=== PATIENT | female | born 1960 | race Caucasian/White ===

== ENCOUNTER 2018-04-10 04:56 | Inpatient (IN) | payer OTHER ==
[2018-04-04 10:25] VITALS: BMI 22.2
[2018-04-10 06:48] LABS: MCH 32.6 pg (25.7-33.7); MCHC 34.9 g/dl (32.0-36.0); MEAN CELL VOLUME 93.4 fl (80-96); MEAN PLT VOLUME 8.2 fl (7.5-11.1); PLATELET COUNT 123 K/MM3 (134-434); RDW 14.1 % (11.6-15.6); WHITE BLOOD COUNT 2.7 K/mm3 (4.0-10.0)
[2018-04-10] MEDS ORDERED: GENTAMICIN SO4 80 MG/2 ML VIAL ONE (07:13)
[2018-04-10] MEDS ORDERED: LIDOCAINE 1%/EPI 1:100000 (20 ML MULTI DOSE VIAL) ONE (07:14)
[2018-04-10] MEDS ORDERED: VANCOMYCIN 1,000 MG VIAL (RESTRICTED TO ID ONLY) ONE ×3 (07:14→08:45)
[2018-04-10] MEDS ORDERED: THROMBIN (BOVINE) 20,000 UNIT VIAL TP ONE (07:14)
[2018-04-10] MEDS ORDERED: BUPIVACAINE HCL/PF 0.5% (5MG/ML) 10 ML VIAL ONE (07:15)
[2018-04-10] MEDS ORDERED: PROPOFOL 20 ML ONE (07:40)
[2018-04-10] MEDS ORDERED: ROCURONIUM BROMIDE 50 MG/5 ML VIAL ONE ×2 (07:40→09:04)
[2018-04-10] MEDS ORDERED: MIDAZOLAM HCL 2 MG/2 ML SINGLE DOSE VIAL ONE ×2 (07:40)
[2018-04-10] MEDS ORDERED: fentaNYL CITRATE 250 MCG/5 ML VIAL ONE (07:40)
--- NOTE | 2018-04-10 08:04 | HP ---
History & Physical Update - History History: No Change - Physical Physical: No Change - Assessment Assessment: No Change - Plan Plan: No Change (no changes since visit with pcp on 03/30/18)
[2018-04-10] MEDS ORDERED: LIDOCAINE 1%/EPI 1:100000 (20 ML MULTI DOSE VIAL) IJ ONE (08:35)
[2018-04-10] MEDS ORDERED: ceFAZolin SODIUM 1 GM VIAL ONE (08:45)
[2018-04-10] MEDS ORDERED: ceFAZolin SODIUM 1 GM VIAL IVPB ONE (08:49)
[2018-04-10] MEDS ORDERED: VANCOMYCIN 1,000 MG VIAL (RESTRICTED TO ID ONLY) IVPB ONE (08:49)
[2018-04-10] MEDS ORDERED: DEXAMETHASONE SOD PHOSPHATE 4 MG/1 ML VIAL ONE (09:08)
[2018-04-10] MEDS ORDERED: BUPIVACAINE HCL/PF 0.5% (5MG/ML) 10 ML VIAL IJ ONE (09:52)
[2018-04-10] MEDS ORDERED: THROMBIN (BOVINE) 5,000 UNIT VIAL TP ONE ×2 (09:52→10:01)
[2018-04-10] MEDS ORDERED: GELATIN, ABSORBABLE 100 EACH SPONGE TP ONE (09:52)
[2018-04-10] MEDS ORDERED: PHENYLEPHRINE HCL 10 MG/1 ML SINGLE DOSE VIAL ONE (10:34)
[2018-04-10] MEDS ORDERED: NEOSTIGMINE METHYLSULFATE 0.5 MG/ML - 10 ML MDV ONE (10:43)
[2018-04-10] MEDS ORDERED: GLYCOPYRROLATE 0.2 MG/1 ML VIAL ONE (10:44)
[2018-04-10] MEDS ORDERED: ONDANSETRON 4 MG/2 ML VIAL IVPUSH PRN (11:34)
[2018-04-10] MEDS ORDERED: HYDROmorphone *PCA* 10MG/50ML DISP.SYRIN PCA ONE (11:55)
[2018-04-10] MEDS: SODIUM CHLORIDE 1,000 ML IV SCH (12:00)
[2018-04-10] MEDS: HYDROmorphone *PCA* 10MG/50ML DISP.SYRIN PCA SCH ×2 (12:00→18:52)
--- NOTE | 2018-04-10 12:39 | OP ---
Operative Note - Note: Operative Date: 04/10/18 Pre-Operative Diagnosis: Lumbar disc herniation LE radiculopathy Operation: L1-L2 discectomy and fusion, interbody cage arthrodesis and pedicle screw fixation Post-Operative Diagnosis: Same as Pre-op Surgeon: Joselito Rousseau Drying Room Operator: Cielo Baker Anesthesiologist/ASSISTED LIVING COORDINATOR: Jessica Wayne Anesthesia: General Estimated Blood Loss (mls): 1,800 Drains & Tubes with Location: JOSE RAFAEL right lumbar Drains, Volume Out (mls): 150 (arnold) Fluid Volume Replaced (mls): 2,400 Operative Report Dictated: Yes
--- NOTE | 2018-04-10 12:40 | SURG ---
Surgery Outbound Sales Consultant Note Outbound Sales Consultant: Cielo Baker PA-C Date of Service: 04/10/18 Diagnosis: Lumbar disc herniation, LE radiculopathy Procedure: L1-L2 discectomy and fusion, interbody cage arthrodesis and pedicle screw fixation I was present for the entirety of the operative procedure. For further detail, please refer to operative report. Visit type - Case Type Case Type: Scheduled - Emergency Emergency Visit: No - New patient This patient is new to me today: Yes Date on this admission: 04/10/18
[2018-04-10 13:22] LABS: HEMATOCRIT 25.4 % (32.4-45.2); HEMOGLOBIN 8.3 GM/dL (10.7-15.3); MCHC 32.8 g/dl (32.0-36.0); MEAN CELL VOLUME 94.3 fl (80-96); MEAN PLT VOLUME 8.8 fl (7.5-11.1); PLATELET COUNT 105 K/MM3 (134-434); RBC 2.69 M/mm3 (3.60-5.2); RDW 14.1 % (11.6-15.6); WHITE BLOOD COUNT 5.6 K/mm3 (4.0-10.0)
[2018-04-10] MEDS ORDERED: CEFAZOLIN 1 GM in DEXTROSE 5%-WATER - 50 ML IVPB SCH (17:00)
[2018-04-10] MEDS: INSULIN SLIDING SCALE (NOVOLOG) 1 VIAL SQ SCH (18:56)
[2018-04-10] MEDS: LACTATED RINGERS SOLUTION 1,000 ML IV SCH (18:56)
[2018-04-10] MEDS: NICOTINE 21 MG/24 HOURS TOPICAL PATCH TD SCH (18:57)
[2018-04-11] MEDS ORDERED: PT OWN MED DRAWER 7, Y5N ONE ×3 (01:34→12:31)
[2018-04-11] MEDS: CEFAZOLIN 1 GM in DEXTROSE 5%-WATER - 50 ML IVPB SCH ×3 (01:46→17:07)
[2018-04-11] MEDS: HEPARIN NA (PORCINE) 5,000 UNITS/ML 1ML VIAL SQ SCH ×3 (06:04→21:51)
[2018-04-11] MEDS: INSULIN SLIDING SCALE (NOVOLOG) 1 VIAL SQ SCH ×3 (06:23→17:28)
[2018-04-11 08:11] LABS: HEMATOCRIT 28.8 % (32.4-45.2); HEMOGLOBIN 9.9 GM/dL (10.7-15.3); MCH 30.1 pg (25.7-33.7); MCHC 34.4 g/dl (32.0-36.0); MEAN CELL VOLUME 87.8 fl (80-96); MEAN PLT VOLUME 8.9 fl (7.5-11.1); PLATELET COUNT 78 K/MM3 (134-434); RBC 3.28 M/mm3 (3.60-5.2); RDW 21.6 % (11.6-15.6); WHITE BLOOD COUNT 6.8 K/mm3 (4.0-10.0)
[2018-04-11] MEDS ORDERED: oxyCODONE HCL 5 MG TABLET PO PRN (08:34)
[2018-04-11 08:54] LABS: ANION GAP 8 (8-16); BLOOD UREA NITROGEN 32 mg/dL (7-18); CALCIUM 7.6 mg/dL (8.5-10.1); CHLORIDE 107 mmol/L (98-107); CO2 24 mmol/L (21-32); GLUCOSE,RANDOM 97 mg/dL (74-106); SODIUM 139 mmol/L (136-145)
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
[2018-04-11 08:56] LABS: POTASSIUM 4.4 mmol/L (3.5-5.1)
[2018-04-11] MEDS: NICOTINE 21 MG/24 HOURS TOPICAL PATCH TD SCH (09:23)
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
[2018-04-11 09:51] LABS: ALBUMIN 2.5 g/dl (3.4-5.0); ALK PHOS 211 U/L (45-117); BILIRUBIN,DIRECT 0.4 mg/dL (0.0-0.2); BILIRUBIN,TOTAL 0.9 mg/dL (0.2-1.0); SGPT/ALT 161 U/L (12-78); TOT PROT 6.8 g/dl (6.4-8.2)
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
[2018-04-11 10:50] LABS: SGOT/AST 174 U/L (15-37)
[2018-04-11] MEDS: SODIUM CHLORIDE 1,000 ML IV SCH (11:43)
[2018-04-11] MEDS: LACTATED RINGERS SOLUTION 1,000 ML IV SCH (11:43)
--- NOTE | 2018-04-11 11:49 | EKG ---
Test Reason : Blood Pressure : / mmHG Vent. Rate : 079 BPM Atrial Rate : 079 BPM P-R Int : 132 ms QRS Dur : 080 ms QT Int : 352 ms P-R-T Axes : 046 006 024 degrees QTc Int : 403 ms NORMAL SINUS RHYTHM NORMAL ECG NO PREVIOUS ECGS AVAILABLE Confirmed by MD ITALIA, SHANE ([id number]) on 04/11/2018 11:49:16 AM Referred By: GERRI BROWN DR Confirmed By:SHANE ECHAVARRIA MD
[2018-04-11] MEDS ORDERED: ALBUTEROL SO4 2.5/IPRATROPIUM 0.5 INH SOL 3 ML VIAL.NEB. NEB SCH (12:00)
[2018-04-11] MEDS: TIOTROPIUM BROMIDE 18 MCG CAPSULES IH SCH (12:25)
[2018-04-11] MEDS: oxyCODONE HCL 5 MG TABLET PO PRN ×3 (14:31→23:55)
[2018-04-11] MEDS: ALBUTEROL SO4 0.083% IH SOL 2.5 MG/3 ML VIAL.NEB. NEB PRN (14:45)
--- NOTE | 2018-04-11 17:00 | PN ---
Progress Note, Physician Chief Complaint: S/p lumbar decompression and fusion under general anesthesia History of Present Illness: Post op day one, family consumer science fcs teacher for pain control. - Current Medication List Current Medications: Active Medications Albuterol Sulfate (Ventolin 0.083% Nebulizer Soln -) 1 amp NEB Q4H PRN PRN Reason: SHORT OF BREATH/WHEEZING Last Admin: 04/11/18 14:45 Dose: 1 amp Arformoterol Tartrate (Brovana (Restricted To Pulmonology/Resp) -) 1 amp NEB RBID [facility] Diphenhydramine HCl (Benadryl Injection -) 25 mg IVPB Q6H PRN PRN Reason: FOR ITCHING Last Admin: 04/11/18 07:58 Dose: 25 mg Fentanyl (Sublimaze Injection -) 50 mcg IVPUSH [id number] PRN PRN Reason: PAIN-PACU ORDER X 4 DOSES ONLY Last Admin: 04/10/18 11:40 Dose: 50 mcg Heparin Sodium (Porcine) (Heparin -) 5,000 unit SQ TID [facility] Last Admin: 04/11/18 14:32 Dose: 5,000 unit Lactated Ringer's (Lactated Ringers Solution) 1,000 mls @ 125 mls/hr IV ASDIR [facility] Last Admin: 04/11/18 11:43 Dose: Not Given Sodium Chloride (Normal Saline -) 1,000 mls @ 100 mls/hr IV ASDIR [facility] Last Admin: 04/11/18 11:43 Dose: Not Given Cefazolin Sodium 1 gm/ (Dextrose) 50 mls @ 100 mls/hr IVPB Q8H [facility] Last Admin: 04/11/18 09:22 Dose: 100 mls/hr Insulin Aspart (Novolog Vial Sliding Scale -) 1 vial SQ TIDAC [facility] PRN Reason: Protocol Last Admin: 04/11/18 12:00 Dose: 2 units Nicotine (Nicoderm Patch -) 21 mg TD DAILY [facility] [place] Last Admin: 04/11/18 09:23 Dose: 21 mg Oxycodone HCl (Roxicodone -) 10 mg PO Q4H PRN PRN Reason: PAIN LEVEL 1-5 Last Admin: 04/11/18 14:31 Dose: 10 mg Tiotropium [place] (Spiriva -) 1 puff IH DAILY [facility] [place] Last Admin: 04/11/18 12:25 Dose: 1 puff - Objective Vital Signs: Vital Signs Temperature 98.9 F 04/11/18 14:50 Pulse Rate 87 04/11/18 14:50 Respiratory Rate 20 04/11/18 14:50 Blood Pressure 91/59 04/11/18 14:50 O2 Sat by Pulse Oximetry (%) 99 04/10/18 20:54 Constitutional: Yes: Well Nourished Cardiovascular: Yes: WNL Respiratory: Yes: On Nasal O2 Gastrointestinal: Yes: WNL Labs: CBC, BMP 04/11/18 07:25 04/11/18 07:07 Assessment/Plan Post op day one, patient doing well, pain controlled, family consumer science fcs teacher stopped on oral analgesics, no nausea or vomiting, complaining of shortness of breath on ambulation, advised to use incentive spirometer. dept of anesthesia will sign off care at this time
[2018-04-11] MEDS ORDERED: DEXTROSE 5%-WATER - 50 ML IVPB ONE (17:06)
[2018-04-11] MEDS ORDERED: ceFAZolin SODIUM 1 GM VIAL ONE (17:06)
[2018-04-11] MEDS: ARFORMOTEROL TARTRATE 15 MCG/2 ML VIAL NEB SCH (20:25)
[2018-04-12] MEDS ORDERED: ceFAZolin SODIUM 1 GM VIAL ONE ×3 (01:01→17:10)
[2018-04-12] MEDS ORDERED: DEXTROSE 5%-WATER - 50 ML IVPB ONE ×3 (01:01→17:11)
[2018-04-12] MEDS: CEFAZOLIN 1 GM in DEXTROSE 5%-WATER - 50 ML IVPB SCH ×3 (01:08→17:27)
[2018-04-12] MEDS: oxyCODONE HCL 5 MG TABLET PO PRN ×5 (03:55→22:53)
[2018-04-12] MEDS: HEPARIN NA (PORCINE) 5,000 UNITS/ML 1ML VIAL SQ SCH ×3 (05:52→22:54)
[2018-04-12] MEDS: INSULIN SLIDING SCALE (NOVOLOG) 1 VIAL SQ SCH ×3 (06:04→17:22)
[2018-04-12] MEDS: ARFORMOTEROL TARTRATE 15 MCG/2 ML VIAL NEB SCH ×2 (07:05→20:30)
[2018-04-12 08:00] LABS: BASO % 0.6 % (0-2.0); HEMATOCRIT 28.3 % (32.4-45.2); HEMOGLOBIN 9.7 GM/dL (10.7-15.3); LYMPH % 28.8 % (8-40); MCH 30.1 pg (25.7-33.7); MCHC 34.3 g/dl (32.0-36.0); MEAN CELL VOLUME 87.7 fl (80-96); MEAN PLT VOLUME 8.4 fl (7.5-11.1); MONO % 12.8 % (3.8-10.2); NEUT % 53.8 % (42.8-82.8); PLATELET COUNT 78 K/MM3 (134-434); RBC 3.23 M/mm3 (3.60-5.2); RDW 21.4 % (11.6-15.6); WHITE BLOOD COUNT 2.9 K/mm3 (4.0-10.0)
[2018-04-12 08:26] LABS: ALBUMIN 2.3 g/dl (3.4-5.0); ANION GAP 5 (8-16); BLOOD UREA NITROGEN 22 mg/dL (7-18); CALCIUM 7.7 mg/dL (8.5-10.1); CHLORIDE 106 mmol/L (98-107); CO2 27 mmol/L (21-32); GLUCOSE,RANDOM 111 mg/dL (74-106); POTASSIUM 4.2 mmol/L (3.5-5.1); SODIUM 138 mmol/L (136-145)
[2018-04-12 08:30] LABS: ALK PHOS 216 U/L (45-117); CHOLESTEROL 98 mg/dL (50-200); CREATININE 0.8 mg/dL (0.55-1.02); HDL CHOLESTEROL 40 mg/dL (40-60); SGOT/AST 204 U/L (15-37); SGPT/ALT 158 U/L (12-78); TOT PROT 6.7 g/dl (6.4-8.2); TRIGLYCERIDES 74 mg/dL (35-160)
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
[2018-04-12] MEDS ORDERED: PT OWN MED DRAWER 7, Y5N ONE (09:42)
[2018-04-12] MEDS: TIOTROPIUM BROMIDE 18 MCG CAPSULES IH SCH (09:44)
[2018-04-12] MEDS: NICOTINE 21 MG/24 HOURS TOPICAL PATCH TD SCH (09:48)
[2018-04-12] MEDS: LACTATED RINGERS SOLUTION 1,000 ML IV SCH (09:50)
[2018-04-12] MEDS ORDERED: INSULIN (NOVOLOG) ASPART 100 UNITS/ML 10ML VIAL ONE ×2 (11:36→17:19)
--- NOTE | 2018-04-12 11:39 | PROC ---
Procedure Note Procedure: J/P drain pulled form right paravetebral lumbar spine with tip fully intact, the drain site was clean and dry and a pressure dressing was applied. The patient tolerated the procedure well. Her incision at the midline is c/d/i with jeyson insitu no evidence tracking erythema, collection or d/c. surrounding tissue intact. Clean dressing applied
[2018-04-12] MEDS: FOLIC ACID 1 MG TABLET (FP) PO SCH (12:05)
[2018-04-12] MEDS: FERROUS SO4 325 MG TABLET (FP) PO SCH (12:05)
[2018-04-12] MEDS: ALBUTEROL SO4 0.083% IH SOL 2.5 MG/3 ML VIAL.NEB. NEB PRN (13:07)
--- NOTE | 2018-04-12 13:19 | PN ---
Progress Note, Physician History of Present Illness: PULMONARY ALERT,C/O BACK PAIN,-SOB AT REST - Current Medication List Current Medications: Active Medications Albuterol Sulfate (Ventolin 0.083% Nebulizer Soln -) 1 amp NEB Q4H PRN PRN Reason: SHORT OF BREATH/WHEEZING Last Admin: 04/12/18 13:07 Dose: 1 amp Arformoterol Tartrate (Brovana (Restricted To Pulmonology/Resp) -) 1 amp NEB RBID [facility] Last Admin: 04/12/18 07:05 Dose: 1 amp Diphenhydramine HCl (Benadryl Injection -) 25 mg IVPB Q6H PRN PRN Reason: FOR ITCHING Last Admin: 04/12/18 11:49 Dose: 25 mg Fentanyl (Sublimaze Injection -) 50 mcg IVPUSH [id number] PRN PRN Reason: PAIN-PACU ORDER X 4 DOSES ONLY Last Admin: 04/10/18 11:40 Dose: 50 mcg Ferrous Sulfate (Feosol -) 325 mg PO DAILY [facility] Last Admin: 04/12/18 12:05 Dose: 325 mg Folic Acid (Folic Acid -) 1 mg PO DAILY [facility] Last Admin: 04/12/18 12:05 Dose: 1 mg Heparin Sodium (Porcine) (Heparin -) 5,000 unit SQ TID [facility] Last Admin: 04/12/18 05:52 Dose: 5,000 unit Cefazolin Sodium 1 gm/ (Dextrose) 50 mls @ 100 mls/hr IVPB Q8H [facility] Last Admin: 04/12/18 09:48 Dose: 100 mls/hr Insulin Aspart (Novolog Vial Sliding Scale -) 1 vial SQ TIDAC [facility] PRN Reason: Protocol Last Admin: 04/12/18 11:38 Dose: 4 units Nicotine (Nicoderm Patch -) 21 mg TD DAILY [facility] Last Admin: 04/12/18 09:48 Dose: 21 mg Oxycodone HCl (Roxicodone -) 10 mg PO Q4H PRN PRN Reason: PAIN LEVEL 1-5 Last Admin: 04/12/18 09:59 Dose: 10 mg Tiotropium [place] (Spiriva -) 1 puff IH DAILY [facility] Last Admin: 04/12/18 09:44 Dose: 1 puff - Objective Vital Signs: Vital Signs Temperature 98.8 F 04/11/18 22:00 Pulse Rate 88 04/11/18 22:00 Respiratory Rate 18 04/11/18 22:00 Blood Pressure 134/77 04/11/18 22:00 O2 Sat by Pulse Oximetry (%) 98 04/11/18 21:00 Constitutional: Yes: Calm, Thin Eyes: Yes: WNL HENT: Yes: WNL Neck: Yes: WNL Cardiovascular: Yes: Regular Rate and Rhythm, S1, S2 Respiratory: Yes: Diminished Gastrointestinal: Yes: Normal Bowel Sounds, Soft Extremities: Yes: WNL Edema: No Labs: CBC, BMP 04/12/18 06:15 04/12/18 06:15 Assessment/Plan Problem List - Problems (1) Atelectasis of both lungs Code(s): J98.11 - ATELECTASIS (2) Breast cancer Code(s): C50.919 - MALIGNANT NEOPLASM OF UNSP SITE OF UNSPECIFIED FEMALE BREAST (3) COPD (chronic obstructive pulmonary disease) Code(s): J44.9 - CHRONIC OBSTRUCTIVE PULMONARY DISEASE, UNSPECIFIED (4) History of laminectomy Code(s): Z98.890 - OTHER SPECIFIED POSTPROCEDURAL STATES (5) SOB (shortness of breath) Code(s): R06.02 - SHORTNESS OF BREATH Assessment/Plan Incentive Spirometry O2 as needed No Smoking Outpatient PFTs Marianoiva Kenziea BID Albuterol PRN No indication for systemic steroids at this time Pain control per primary team DR CHACON
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
[2018-04-13] MEDS ORDERED: DEXTROSE 5%-WATER - 50 ML IVPB ONE ×3 (01:36→16:52)
[2018-04-13] MEDS ORDERED: ceFAZolin SODIUM 1 GM VIAL ONE ×3 (01:36→16:51)
[2018-04-13] MEDS: CEFAZOLIN 1 GM in DEXTROSE 5%-WATER - 50 ML IVPB SCH ×3 (01:51→16:57)
[2018-04-13] MEDS: oxyCODONE HCL 5 MG TABLET PO PRN ×3 (06:16→17:50)
[2018-04-13] MEDS: INSULIN SLIDING SCALE (NOVOLOG) 1 VIAL SQ SCH ×3 (06:16→16:57)
[2018-04-13] MEDS: HEPARIN NA (PORCINE) 5,000 UNITS/ML 1ML VIAL SQ SCH ×3 (06:17→23:21)
[2018-04-13] MEDS: ARFORMOTEROL TARTRATE 15 MCG/2 ML VIAL NEB SCH ×2 (07:26→19:25)
[2018-04-13 07:45] LABS: HEMATOCRIT 30.6 % (32.4-45.2); HEMOGLOBIN 10.6 GM/dL (10.7-15.3); MCH 30.3 pg (25.7-33.7); MCHC 34.6 g/dl (32.0-36.0); MEAN CELL VOLUME 87.5 fl (80-96); MEAN PLT VOLUME 8.7 fl (7.5-11.1); PLATELET COUNT 96 K/MM3 (134-434); RBC 3.49 M/mm3 (3.60-5.2); RDW 19.7 % (11.6-15.6); WHITE BLOOD COUNT 4.5 K/mm3 (4.0-10.0)
[2018-04-13 08:00] LABS: CHLORIDE 100 mmol/L (98-107); POTASSIUM 3.9 mmol/L (3.5-5.1); SODIUM 134 mmol/L (136-145)
[2018-04-13 08:14] LABS: ANION GAP 7 (8-16); BLOOD UREA NITROGEN 14 mg/dL (7-18); CALCIUM 7.9 mg/dL (8.5-10.1); CO2 27 mmol/L (21-32); CREATININE 0.7 mg/dL (0.55-1.02); GLUCOSE,RANDOM 141 mg/dL (74-106)
[2018-04-13] MEDS ORDERED: PT OWN MED DRAWER 7, Y5N ONE (09:00)
[2018-04-13] MEDS: FERROUS SO4 325 MG TABLET (FP) PO SCH (09:08)
[2018-04-13] MEDS: TIOTROPIUM BROMIDE 18 MCG CAPSULES IH SCH (09:08)
[2018-04-13] MEDS: NICOTINE 21 MG/24 HOURS TOPICAL PATCH TD SCH (09:08)
[2018-04-13] MEDS: FOLIC ACID 1 MG TABLET (FP) PO SCH (09:08)
--- NOTE | 2018-04-13 10:30 | PN ---
Progress Note (short form) - Note Progress Note: Breathing feels better. Less SOB. Feels that the BD TX and nicotene patch are helpful. Intake & Output 04/10/18 04/11/18 04/12/18 04/13/18 23:59 23:59 23:59 23:59 Intake Total 2650 1752 350 100 Output Total 2915 1530 3070 500 Balance -265 222 -2720 -400 Weight 110 lb Last Vital Signs Temp Pulse Resp BP Pulse Ox 100.4 F H 93 H 20 154/94 98 04/13/18 06:30 04/13/18 06:30 04/13/18 06:30 04/13/18 06:30 04/12/18 21:00 Active Medications Albuterol Sulfate (Ventolin 0.083% Nebulizer Soln -) 1 amp NEB Q4H PRN PRN Reason: SHORT OF BREATH/WHEEZING Last Admin: 04/12/18 13:07 Dose: 1 amp Arformoterol Tartrate (Brovana (Restricted To Pulmonology/Resp) -) 1 amp NEB RBID [facility] Last Admin: 04/13/18 07:26 Dose: 1 amp Diphenhydramine HCl (Benadryl Injection -) 25 mg IVPB Q6H PRN PRN Reason: FOR ITCHING Last Admin: 04/13/18 01:50 Dose: 25 mg Fentanyl (Sublimaze Injection -) 50 mcg IVPUSH [id number] PRN PRN Reason: PAIN-PACU ORDER X 4 DOSES ONLY Last Admin: 04/10/18 11:40 Dose: 50 mcg Ferrous Sulfate (Feosol -) 325 mg PO DAILY [facility] Last Admin: 04/13/18 09:08 Dose: 325 mg Folic Acid (Folic Acid -) 1 mg PO DAILY [facility] Last Admin: 04/13/18 09:08 Dose: 1 mg Heparin Sodium (Porcine) (Heparin -) 5,000 unit SQ TID [facility] Last Admin: 04/13/18 06:17 Dose: 5,000 unit Cefazolin Sodium 1 gm/ (Dextrose) 50 mls @ 100 mls/hr IVPB Q8H [facility] Last Admin: 04/13/18 09:06 Dose: 100 mls/hr Insulin Aspart (Novolog Vial Sliding Scale -) 1 vial SQ TIDAC [facility] PRN Reason: Protocol Last Admin: 04/13/18 06:16 Dose: 2 units Nicotine (Nicoderm Patch -) 21 mg TD DAILY [facility] Last Admin: 04/13/18 09:08 Dose: 21 mg Oxycodone HCl (Roxicodone -) 10 mg PO Q4H PRN PRN Reason: PAIN LEVEL 1-5 Last Admin: 04/13/18 06:16 Dose: 10 mg Tiotropium [place] (Spiriva -) 1 puff IH DAILY [facility] Last Admin: 04/13/18 09:08 Dose: 1 puff Constitutional: Yes: Anxious, Thin Eyes: Yes: Conjunctiva Clear, EOM Intact HENT: Yes: Atraumatic, Normocephalic Neck: Yes: Supple, Trachea Midline Cardiovascular: Yes: Regular Rate and Rhythm Respiratory: Yes: Cough, Diminished, On Nasal O2, Rhonchi. No: Accessory Muscle Use, Rales, Stridor, Tachypnea, Wheezes ...Inspection: Yes: WNL ...Clubbing: No Gastrointestinal: Yes: Normal Bowel Sounds, Soft Renal/: Yes: WNL Musculoskeletal: Yes: Back Pain, Joint Stiffness, Joint Swelling, Muscle Pain Extremities: Yes: WNL Edema: No Peripheral Pulses WNL: Yes Integumentary: Yes: Incision. No: Rash Neurological: Yes: WNL, Alert, Oriented ...Motor Strength: WNL Psychiatric: Yes: WNL, Alert, Oriented Labs: Laboratory Results - last 24 hr 04/12/18 04/12/18 04/13/18 11:31 17:15 06:13 WBC RBC Hgb Hct MCV MCH MCHC RDW Plt Count MPV Sodium Potassium Chloride Carbon Dioxide Anion Gap BUN Creatinine POC Glucometer 219 160 151 Random Glucose Calcium 04/13/18 04/13/18 06:15 06:15 WBC 4.5 D RBC 3.49 L Hgb 10.6 L Hct 30.6 L MCV 87.5 MCH 30.3 MCHC 34.6 RDW 19.7 H Plt Count 96 L D MPV 8.7 Sodium 134 L Potassium 3.9 Chloride 100 Carbon Dioxide 27 Anion Gap 7 L BUN 14 Creatinine 0.7 POC Glucometer Random Glucose 141 H Calcium 7.9 L Problem List - Problems (1) Atelectasis of both lungs Code(s): J98.11 - ATELECTASIS (2) Breast cancer Code(s): C50.919 - MALIGNANT NEOPLASM OF UNSP SITE OF UNSPECIFIED FEMALE BREAST (3) COPD (chronic obstructive pulmonary disease) Code(s): J44.9 - CHRONIC OBSTRUCTIVE PULMONARY DISEASE, UNSPECIFIED (4) History of laminectomy Code(s): Z98.890 - OTHER SPECIFIED POSTPROCEDURAL STATES (5) SOB (shortness of breath) Code(s): R06.02 - SHORTNESS OF BREATH Assessment/Plan Encourage Incentive Spirometry O2 as needed No Smoking Outpatient PFTs Spiriva Brovana BID Albuterol PRN No indication for systemic steroids at this time Pain control per primary team Nicotene patch Patient reports that she is motivated to quit smoking Dr Sanchez Problem List - Problems (1) Atelectasis of both lungs Code(s): J98.11 - ATELECTASIS (2) Breast cancer Code(s): C50.919 - MALIGNANT NEOPLASM OF UNSP SITE OF UNSPECIFIED FEMALE BREAST (3) COPD (chronic obstructive pulmonary disease) Code(s): J44.9 - CHRONIC OBSTRUCTIVE PULMONARY DISEASE, UNSPECIFIED (4) History of laminectomy Code(s): Z98.890 - OTHER SPECIFIED POSTPROCEDURAL STATES (5) SOB (shortness of breath) Code(s): R06.02 - SHORTNESS OF BREATH
--- NOTE | 2018-04-13 11:12 | PN ---
Progress Note, Physician Chief Complaint: patient seen and examined complaining of constipation JOSE RAFAEL drain removed ambulating with walker temp noted will order UA and cultures - Current Medication List Current Medications: Active Medications Albuterol Sulfate (Ventolin 0.083% Nebulizer Soln -) 1 amp NEB Q4H PRN PRN Reason: SHORT OF BREATH/WHEEZING Last Admin: 04/12/18 13:07 Dose: 1 amp Arformoterol Tartrate (Brovana (Restricted To Pulmonology/Resp) -) 1 amp NEB RBID [facility] Last Admin: 04/13/18 07:26 Dose: 1 amp Diphenhydramine HCl (Benadryl Injection -) 25 mg IVPB Q6H PRN PRN Reason: FOR ITCHING Last Admin: 04/13/18 01:50 Dose: 25 mg Fentanyl (Sublimaze Injection -) 50 mcg IVPUSH [id number] PRN PRN Reason: PAIN-PACU ORDER X 4 DOSES ONLY Last Admin: 04/10/18 11:40 Dose: 50 mcg Ferrous Sulfate (Feosol -) 325 mg PO DAILY [facility] Last Admin: 04/13/18 09:08 Dose: 325 mg Folic Acid (Folic Acid -) 1 mg PO DAILY [facility] Last Admin: 04/13/18 09:08 Dose: 1 mg Heparin Sodium (Porcine) (Heparin -) 5,000 unit SQ TID [facility] Last Admin: 04/13/18 06:17 Dose: 5,000 unit Cefazolin Sodium 1 gm/ (Dextrose) 50 mls @ 100 mls/hr IVPB Q8H [facility] Last Admin: 04/13/18 09:06 Dose: 100 mls/hr Insulin Aspart (Novolog Vial Sliding Scale -) 1 vial SQ TIDAC [facility] PRN Reason: Protocol Last Admin: 04/13/18 06:16 Dose: 2 units Nicotine (Nicoderm Patch -) 21 mg TD DAILY [facility] Last Admin: 04/13/18 09:08 Dose: 21 mg Oxycodone HCl (Roxicodone -) 10 mg PO Q4H PRN PRN Reason: PAIN LEVEL 1-5 Last Admin: 04/13/18 06:16 Dose: 10 mg Tiotropium [place] (Spiriva -) 1 puff IH DAILY [facility] Last Admin: 04/13/18 09:08 Dose: 1 puff - Objective Vital Signs: Vital Signs Temperature 100.8 F H 0517/18 08:05 Pulse Rate 86 04/13/18 08:05 Respiratory Rate 20 04/13/18 08:05 Blood Pressure 159/92 04/13/18 08:05 O2 Sat by Pulse Oximetry (%) 98 04/12/18 21:00 Constitutional: Yes: Calm Neck: Yes: Trachea Midline Cardiovascular: Yes: Regular Rate and Rhythm, S1, S2 Respiratory: Yes: CTA Bilaterally Gastrointestinal: Yes: Normal Bowel Sounds, Soft Musculoskeletal: Yes: Other (back brace) Neurological: Yes: Alert, Oriented Labs: CBC, BMP 04/13/18 06:15 04/13/18 06:15 Problem List - Problems (1) History of laminectomy Assessment/Plan: L1-L2 discectomy and fusion, interbody cage arthrodesis and pedicle screw fixation JOSE RAFAEL drain removed rolling walker at the time of discharge pain control dvt ppx Code(s): Z98.890 - OTHER SPECIFIED POSTPROCEDURAL STATES (2) Fever Assessment/Plan: UA and cultures orderd on ancef incentive spirometry cxr Code(s): R50.9 - FEVER, UNSPECIFIED (3) Liver cancer Assessment/Plan: elevated LFT to follow up with PMD Code(s): C22.9 - MALIG NEOPLASM OF LIVER, NOT SPECIFIED PRIMARY OR SEC (4) COPD (chronic obstructive pulmonary disease) Assessment/Plan: smoking cessation nictone patch Code(s): J44.9 - CHRONIC OBSTRUCTIVE PULMONARY DISEASE, UNSPECIFIED
[2018-04-13] MEDS ORDERED: POLYETHYLENE GLYCOL 3350 119 GM BTL PO SCH (11:15)
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
[2018-04-13 12:42] LABS: URINE APPEARANCE SLCLOUDY; URINE BILIRUBIN NEGATIVE (<2.0 mg/dL); URINE COLOR YELLOW; URINE GLUCOSE (UA) NEGATIVE (NEGATIVE); URINE KETONE NEGATIVE (NEGATIVE); URINE LEUK ESTERASE NEGATIVE (NEGATIVE); URINE NITRITE NEGATIVE (NEGATIVE); URINE PROTEIN NEGATIVE (NEGATIVE)
[2018-04-14] MEDS ORDERED: ceFAZolin SODIUM 1 GM VIAL ONE ×3 (00:28→16:50)
[2018-04-14] MEDS ORDERED: DEXTROSE 5%-WATER - 50 ML IVPB ONE ×3 (00:30→16:51)
[2018-04-14] MEDS: CEFAZOLIN 1 GM in DEXTROSE 5%-WATER - 50 ML IVPB SCH ×3 (01:05→16:51)
[2018-04-14] MEDS: oxyCODONE HCL 5 MG TABLET PO PRN ×4 (01:08→21:55)
[2018-04-14] MEDS: HEPARIN NA (PORCINE) 5,000 UNITS/ML 1ML VIAL SQ SCH ×3 (06:34→21:56)
--- NOTE | 2018-04-14 09:05 | PN ---
Progress Note (short form) - Note Progress Note: PULMONARY VSS/AFEBRILE HAS "ELECTRIC SHOCKS ON LEFT LEG WHEN DOING PT" NO CP/SOB/COUGH ANICTERIC/EDENTULOUS CLEAR B/L BREATH SOUNDS S1S2 RSR BS+ NO EDEMA LABS/MEDS/NOTES/IMAGES REVIEWED (1) Atelectasis of both lungs Code(s): J98.11 - ATELECTASIS (2) Breast cancer Code(s): C50.919 - MALIGNANT NEOPLASM OF UNSP SITE OF UNSPECIFIED FEMALE BREAST (3) COPD (chronic obstructive pulmonary disease) Code(s): J44.9 - CHRONIC OBSTRUCTIVE PULMONARY DISEASE, UNSPECIFIED (4) History of laminectomy Code(s): Z98.890 - OTHER SPECIFIED POSTPROCEDURAL STATES (5) SOB (shortness of breath) Code(s): R06.02 - SHORTNESS OF BREATH Assessment/Plan Encourage Incentive Spirometry O2 as needed No Smoking Outpatient PFTs Spiriva Brovana BID Albuterol PRN No indication for systemic steroids at this time Pain control per primary team Raulitotene patch Patient reports that she is motivated to quit smoking Jose Enrique SIMENTAL MD
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
[2018-04-14] MEDS: FERROUS SO4 325 MG TABLET (FP) PO SCH (09:18)
[2018-04-14] MEDS: NICOTINE 21 MG/24 HOURS TOPICAL PATCH TD SCH (09:18)
[2018-04-14] MEDS: TIOTROPIUM BROMIDE 18 MCG CAPSULES IH SCH (09:18)
[2018-04-14] MEDS: FOLIC ACID 1 MG TABLET (FP) PO SCH (09:19)
[2018-04-14] MEDS ORDERED: PT OWN MED DRAWER 7, Y5N ONE (09:25)
[2018-04-14] MEDS: POLYETHYLENE GLYCOL 3350 119 GM BTL PO SCH ×2 (09:50→21:56)
[2018-04-14] MEDS: ARFORMOTEROL TARTRATE 15 MCG/2 ML VIAL NEB SCH ×2 (10:58→20:54)
[2018-04-14] MEDS: INSULIN SLIDING SCALE (NOVOLOG) 1 VIAL SQ SCH ×2 (11:50→16:47)
[2018-04-14] MEDS ORDERED: INSULIN (NOVOLOG) ASPART 100 UNITS/ML 10ML VIAL ONE (11:52)
[2018-04-15] MEDS ORDERED: ceFAZolin SODIUM 1 GM VIAL ONE ×3 (00:56→17:23)
[2018-04-15] MEDS ORDERED: DEXTROSE 5%-WATER - 50 ML IVPB ONE ×3 (00:56→17:24)
[2018-04-15] MEDS: CEFAZOLIN 1 GM in DEXTROSE 5%-WATER - 50 ML IVPB SCH ×3 (01:06→17:24)
[2018-04-15] MEDS: oxyCODONE HCL 5 MG TABLET PO PRN ×3 (02:33→18:04)
[2018-04-15] MEDS: INSULIN SLIDING SCALE (NOVOLOG) 1 VIAL SQ SCH ×4 (06:10→17:21)
[2018-04-15] MEDS: HEPARIN NA (PORCINE) 5,000 UNITS/ML 1ML VIAL SQ SCH ×3 (06:38→21:00)
[2018-04-15] MEDS: ARFORMOTEROL TARTRATE 15 MCG/2 ML VIAL NEB SCH ×2 (07:42→20:15)
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
[2018-04-15] MEDS ORDERED: PT OWN MED DRAWER 7, Y5N ONE (09:36)
[2018-04-15] MEDS: TIOTROPIUM BROMIDE 18 MCG CAPSULES IH SCH (09:37)
[2018-04-15] MEDS: FERROUS SO4 325 MG TABLET (FP) PO SCH (09:37)
[2018-04-15] MEDS: FOLIC ACID 1 MG TABLET (FP) PO SCH (09:38)
[2018-04-15] MEDS: NICOTINE 21 MG/24 HOURS TOPICAL PATCH TD SCH (09:38)
[2018-04-15] MEDS: POLYETHYLENE GLYCOL 3350 119 GM BTL PO SCH ×2 (09:39→21:00)
--- NOTE | 2018-04-15 10:33 | PN ---
Progress Note (short form) - Note Progress Note: PULMONARY VSS/LOW GRADE TEMPS HAS "ELECTRIC SHOCKS ON LEFT LEG WHEN DOING PT" NO /SOB/COUGH ANICTERIC/EDENTULOUS DISTANT B/L BREATH SOUNDS S1S2 RSR BS+ NO EDEMA LABS/MEDS/NOTES/IMAGES REVIEWED (1) Atelectasis of both lungs Code(s): J98.11 - ATELECTASIS (2) Breast cancer Code(s): C50.919 - MALIGNANT NEOPLASM OF UNSP SITE OF UNSPECIFIED FEMALE BREAST (3) COPD (chronic obstructive pulmonary disease) Code(s): J44.9 - CHRONIC OBSTRUCTIVE PULMONARY DISEASE, UNSPECIFIED (4) History of laminectomy Code(s): Z98.890 - OTHER SPECIFIED POSTPROCEDURAL STATES (5) SOB (shortness of breath) Code(s): R06.02 - SHORTNESS OF BREATH Assessment/Plan Encourage Incentive Spirometry O2 as needed No Smoking Outpatient PFTs Spiriva Brovana BID Albuterol PRN No indication for systemic steroids at this time Pain control per primary team Raulitotenrinku patch Patient reports that she is motivated to quit smoking Jose Enrique SIMENTAL MD
[2018-04-16] MEDS ORDERED: DEXTROSE 5%-WATER - 50 ML IVPB ONE ×3 (00:49→17:41)
[2018-04-16] MEDS ORDERED: ceFAZolin SODIUM 1 GM VIAL ONE ×3 (00:49→17:40)
[2018-04-16] MEDS: oxyCODONE HCL 5 MG TABLET PO PRN ×4 (00:52→22:07)
[2018-04-16] MEDS: CEFAZOLIN 1 GM in DEXTROSE 5%-WATER - 50 ML IVPB SCH ×3 (00:53→17:43)
[2018-04-16] MEDS: HEPARIN NA (PORCINE) 5,000 UNITS/ML 1ML VIAL SQ SCH ×3 (05:42→21:39)
[2018-04-16] MEDS: INSULIN SLIDING SCALE (NOVOLOG) 1 VIAL SQ SCH ×3 (06:07→19:30)
[2018-04-16] MEDS: ARFORMOTEROL TARTRATE 15 MCG/2 ML VIAL NEB SCH ×2 (07:36→20:52)
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
[2018-04-16] MEDS: NICOTINE 21 MG/24 HOURS TOPICAL PATCH TD SCH (10:35)
[2018-04-16] MEDS: FOLIC ACID 1 MG TABLET (FP) PO SCH (10:35)
[2018-04-16] MEDS: FERROUS SO4 325 MG TABLET (FP) PO SCH (10:35)
[2018-04-16] MEDS: SENNOSIDES/DOCUSATE COMBO (SENNA PLUS) TABLET (UD) PO SCH ×2 (10:35→21:39)
[2018-04-16] MEDS: TIOTROPIUM BROMIDE 18 MCG CAPSULES IH SCH (10:36)
[2018-04-16] MEDS ORDERED: PT OWN MED DRAWER 7, Y5N ONE ×2 (10:48→10:52)
[2018-04-16] MEDS: POLYETHYLENE GLYCOL 3350 119 GM BTL PO SCH ×2 (12:27→21:41)
[2018-04-17] MEDS ORDERED: ceFAZolin SODIUM 1 GM VIAL ONE ×2 (00:20→09:52)
[2018-04-17] MEDS ORDERED: DEXTROSE 5%-WATER - 50 ML IVPB ONE ×2 (00:20→09:53)
[2018-04-17] MEDS: CEFAZOLIN 1 GM in DEXTROSE 5%-WATER - 50 ML IVPB SCH ×2 (00:52→12:22)
[2018-04-17] MEDS: oxyCODONE HCL 5 MG TABLET PO PRN ×2 (04:46→05:51)
[2018-04-17] MEDS: HEPARIN NA (PORCINE) 5,000 UNITS/ML 1ML VIAL SQ SCH ×2 (05:46→14:37)
[2018-04-17] MEDS: INSULIN SLIDING SCALE (NOVOLOG) 1 VIAL SQ SCH ×2 (06:01→12:27)
--- NOTE | 2018-04-17 09:50 | PN ---
Progress Note (short form) - Note Progress Note: PULMONARY Denies shortness of breath or chest pain. +cough with santiago sputum. No fevers or chills. Last Vital Signs Temp Pulse Resp BP Pulse Ox 97.5 F L 54 L 20 94/46 94 L 04/17/18 06:51 04/17/18 06:51 04/17/18 06:51 04/17/18 06:51 04/16/18 21:00 Gen: NAD at rest Heart: RRR Lung: decreased breath sounds at the bases Abd: soft, nontender Ext: no edema CBC, BMP 04/13/18 06:15 04/13/18 06:15 Active Medications Arformoterol Tartrate (Brovana (Restricted To Pulmonology/Resp) -) 1 amp NEB RBID [facility] Last Admin: 04/16/18 20:52 Dose: 1 amp Diphenhydramine HCl (Benadryl Injection -) 25 mg IVPB Q6H PRN PRN Reason: FOR ITCHING Last Admin: 04/15/18 20:18 Dose: 25 mg Ferrous Sulfate (Feosol -) 325 mg PO DAILY [facility] Last Admin: 04/16/18 10:35 Dose: 325 mg Folic Acid (Folic Acid -) 1 mg PO DAILY [facility] Last Admin: 04/16/18 10:35 Dose: 1 mg Heparin Sodium (Porcine) (Heparin -) 5,000 unit SQ TID [facility] Last Admin: 04/17/18 05:46 Dose: 5,000 unit Cefazolin Sodium 1 gm/ (Dextrose) 50 mls @ 100 mls/hr IVPB Q8H [facility] Last Admin: 04/17/18 00:52 Dose: 100 mls/hr Insulin Aspart (Novolog Vial Sliding Scale -) 1 vial SQ TIDAC [facility] PRN Reason: Protocol Last Admin: 04/17/18 06:01 Dose: Not Given Nicotine (Nicoderm Patch -) 21 mg TD DAILY [facility] Last Admin: 04/16/18 10:35 Dose: 21 mg Oxycodone HCl (Roxicodone -) 10 mg PO Q4H PRN PRN Reason: PAIN LEVEL 4 - 6 Last Admin: 04/17/18 05:51 Dose: 10 mg Polyethylene Glycol (Miralax (For Daily Use) -) 17 gm PO BID [facility] Last Admin: 05/20/18 21:41 Dose: Not Given Senna/Docusate Sodium (Pericolace -) 1 tablet PO BID [facility] Last Admin: 04/16/18 21:39 Dose: 1 tablet Tiotropium [place] (Spiriva -) 1 puff IH DAILY [facility] Last Admin: 04/16/18 10:36 Dose: 1 puff A/P Lumbar Disc Herniation s/p L1-L2 Discectomy/Fusion/Interbody Cage Arthrodesis/Pedicle Screw Fixation COPD DM Smoker - inhaled bronchodilators - will add prn albuterol - rehab/PT - pain control - smoking cessation - will need outpt PFTs and f/u - DVT prophylaxis
[2018-04-17] MEDS ORDERED: ALBUTEROL SO4 0.083% IH SOL 2.5 MG/3 ML VIAL.NEB. NEB PRN (09:51)
[2018-04-17] MEDS: ARFORMOTEROL TARTRATE 15 MCG/2 ML VIAL NEB SCH (10:15)
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
[2018-04-17] MEDS ORDERED: Methylnaltrexone Bromide 12 MG/0.6 ML KIT SQ ONE (12:00)
[2018-04-17] MEDS: FERROUS SO4 325 MG TABLET (FP) PO SCH (12:22)
[2018-04-17] MEDS: SENNOSIDES/DOCUSATE COMBO (SENNA PLUS) TABLET (UD) PO SCH (12:22)
[2018-04-17] MEDS: FOLIC ACID 1 MG TABLET (FP) PO SCH (12:23)
[2018-04-17] MEDS: NICOTINE 21 MG/24 HOURS TOPICAL PATCH TD SCH (12:24)
[2018-04-17] MEDS: POLYETHYLENE GLYCOL 3350 119 GM BTL PO SCH (12:24)
[2018-04-17] MEDS: TIOTROPIUM BROMIDE 18 MCG CAPSULES IH SCH (12:27)
[2018-04-17 15:07] VITALS: BP 138/86; PULSE 57; TEMP 98
== END 2018-04-17 15:10 | disposition home health service (06) | DRG 304 ==
LOC: JSAMEDAYSX 04:56 → EDSTATUS 11:30 → J8W 18:24
PROVIDERS: ADMIT Family Medicine; ATTEND Family Medicine
PROC: 0JX70ZZ Transfer Back Subcutaneous Tissue and Fascia, Open Approach (ICD-10-PCS; 2018-04-10)
PROC: 0SG00AJ Fusion of Lumbar Vertebral Joint with Interbody Fusion Device, Posterior Approach, Anterior Column, Open Approach (ICD-10-PCS; principal; 2018-04-10 08:00)
DX: M51.26 Other intervertebral disc displacement, lumbar region (principal); E11.9 Type 2 diabetes mellitus without complications; M54.16 Radiculopathy, lumbar region; F17.210 Nicotine dependence, cigarettes, uncomplicated; R06.02 Shortness of breath; K59.00 Constipation, unspecified; J44.9 Chronic obstructive pulmonary disease, unspecified; D64.9 Anemia, unspecified; R50.82 Postprocedural fever; J98.11 Atelectasis; K59.03 Drug induced constipation; T40.2X5A Adverse effect of other opioids, initial encounter; C22.9 Malignant neoplasm of liver, not specified as primary or secondary; J95.89 Other postprocedural complications and disorders of respiratory system, not elsewhere classified; Y83.8 Other surgical procedures as the cause of abnormal reaction of the patient, or of later complication, without mention of misadventure at the time of the procedure; Z85.3 Personal history of malignant neoplasm of breast
CPT/HCPCS: 36415; 36430; 71045-TC-FY; 72131-TC; 74018-TC-FY; 76000-TC-FY; 80048; 80053; 80061; 80076; 81003; 82550; 82553; 82962; 83036; 83721; 84484; 85025; 85027; 86900; 86922; 87040; 87086; 93005; 93010; 93306-TC; 94640; 94760; 97116-GP; 97161-GP; J1644; J7030; P9038; P9058